=== PATIENT | female | born 1960 | race Two or more races ===

== ENCOUNTER 2021-02-23 21:49 | Emergency (ER) | payer OTHER ==
[~2021-02-23] VITALS: Ht 154.9 cm; Wt 65.8 kg
[2021-02-24 00:30] LABS: Urine Bacteria NONE SEEN /hpf (None Seen); Urine Blood Negative /uL (Negative); Urine Specific Gravity 1.004 (1.001-1.035); Urine WBC 1 /hpf (0 - 5)
[2021-02-24 00:34] VITALS: BP 125/64
== END 2021-02-24 01:18 | disposition home or self-care (01) ==
LOC: ER 21:49
DX: R33.9 Retention of urine, unspecified (principal); N99.89 Other postprocedural complications and disorders of genitourinary system; K21.9 Gastro-esophageal reflux disease without esophagitis; Z87.448 Personal history of other diseases of urinary system; Z88.0 Allergy status to penicillin
CPT/HCPCS: 51702; 81001